=== PATIENT | male | born 1980 | race Caucasian/White ===

== ENCOUNTER 2023-01-31 10:07 | Outpatient (CLI) | payer OTHER, SELFPAY | END 2023-01-31 10:08 | disposition home or self-care (01) | PROVIDERS: PCP Internal Medicine; Visit Provider Internal Medicine | DX: K26.9 Duodenal ulcer, unspecified as acute or chronic, without hemorrhage or perforation (principal); K58.9 Irritable bowel syndrome, unspecified | CPT/HCPCS: 80053; 86140 ==

== ENCOUNTER 2023-02-09 07:50 | Outpatient (CLI) | payer OTHER, SELFPAY ==
--- NOTE | 2023-02-09 08:00 | CRLHL7_ITS ---
For Patients: As a result of the Century Cures Act, medical imaging exams and procedure reports are released immediately into your electronic medical record. You may view this report before your referring provider. If you have questions, please contact your health care provider. INDICATION: Left upper quadrant pain for years. Worse recently. COMPARISON: March 01, 2017 TECHNIQUE: CT examination of the abdomen and pelvis was performed following the uneventful intravenous administration of 108 cc of Isovue 370. Thin section axial images were obtained from the lung bases through the pubic symphysis. Oral contrast was not administered. Please note that all CT scans at this facility use dose modulation, iterative reconstruction, and/or weight-based dosing when appropriate to reduce radiation dose to as low as reasonably achievable. FINDINGS: LUNG BASES: The lung bases as visualized appear normal.The heart size is normal at the lung bases. Small hiatal hernia LIVER/BILIARY SYSTEM:Hepatic steatosis. No focal mass or biliary ductal dilation. Gallbladder appears normal. ADRENALS: Normal KIDNEYS, URETERS and BLADDER:The kidneys appear normal. No visible mass, calculus or hydronephrosis. The ureters and bladder as visualized appear normal. SPLEEN:Normal appearance. PANCREAS: Appears normal. RETROPERITONEUM and MESENTERY: There is no mass, adenopathy or aortic aneurysm. Atherosclerotic vascular calcification GASTROINTESTINAL SYSTEM: There is no evidence of diverticulitis, colitis, mechanical obstruction, or appendicitis. The small bowel as visualized appears normal.Scattered diverticulosis parent PELVIS: Mildly prominent prostate. OSSEOUS STRUCTURES and ABDOMINAL WALL: There is an age-appropriate appearance of the osseous structures.No significant abdominal wall defect. OTHER: No free fluid or free air. IMPRESSION: No specific visible cause for pain. Nonacute appearing findings as above Please note that all CT scans at this facility use dose modulation, iterative reconstruction, and/or weight-based dosing when appropriate to reduce radiation dose to as low as reasonably achievable. Dictated by Emile Jack MD @ 02/09/2023 9:04:34 AM (Electronically Signed)
== END 2023-02-09 07:51 | disposition home or self-care (01) ==
LOC: CT 07:50
PROVIDERS: PCP Internal Medicine; Visit Provider Internal Medicine
DX: R10.12 Left upper quadrant pain (principal); R19.5 Other fecal abnormalities
CPT/HCPCS: 74177; Q9967

== ENCOUNTER 2024-06-25 09:18 | Outpatient (CLI) | payer OTHER, SELFPAY | END 2024-06-25 09:19 | disposition home or self-care (01) | PROVIDERS: PCP Internal Medicine; Visit Provider Internal Medicine | DX: I10 Essential (primary) hypertension (principal); Z13.220 Encounter for screening for lipoid disorders | CPT/HCPCS: 80053; 80061 ==

== ENCOUNTER 2024-07-24 07:41 | Outpatient (CLI) | payer OTHER, SELFPAY ==
--- NOTE | 2024-07-24 09:36 | P.ANES_ITS ---
Anesthesia Charges Start Date/Time Anesthesia Start Date: 07/24/24 Anesthesia Start Time: 08:50 Stop Date/Time Anesthesia Stop Date: 07/24/24 Anesthesia Stop Time: 09:28 Coding CPT Codes CPT Codes: ZURDO LWR INTST NDSC NOS - 13589 ([id number]) QK - ORACLE DBA 2-4 CNCRNT ZURDO PROC, QX - ASSISTANT PROFESSOR OF DIETETICS SVC W/ MD MED DIRECTION, P2 - PATIENT W/MILD SYST DISEASE
--- NOTE | 2024-07-24 09:36 | W.ANESCHARGE ---
Anesthesia Charges Start Date/Time Anesthesia Start Date: 07/24/24 Anesthesia Start Time: 08:50 Stop Date/Time Anesthesia Stop Date: 07/24/24 Anesthesia Stop Time: 09:28 Coding CPT Codes CPT Codes: ZURDO LWR INTST NDSC NOS - 92420 ([id number]) QK - CAREER DEVELOPMENT SPECIALIST 2-4 CNCRNT ZURDO PROC, QX - WAITER WAITRESS SVC W/ MD MED DIRECTION, P2 - PATIENT W/MILD SYST DISEASE
--- NOTE | 2024-07-24 10:09 | P.ANES_ITS ---
Anesthesia Charges Start Date/Time Anesthesia Start Date: 07/24/24 Anesthesia Start Time: 08:50 Stop Date/Time Anesthesia Stop Date: 07/24/24 Anesthesia Stop Time: 09:28 Coding CPT Codes CPT Codes: ZURDO LWR INTST NDSC NOS - [id number] ([id number]) QK - SAMPLE SHOE INSPECTOR AND REWORKER 2-4 CNCRNT ZURDO PROC, QX - RECRUITER ACCOUNT MANAGER SVC W/ MD MED DIRECTION, P2 - PATIENT W/MILD SYST DISEASE
--- NOTE | 2024-07-24 10:09 | W.ANESCHARGE ---
Anesthesia Charges Start Date/Time Anesthesia Start Date: 07/24/24 Anesthesia Start Time: 08:50 Stop Date/Time Anesthesia Stop Date: 07/24/24 Anesthesia Stop Time: 09:28 Coding CPT Codes CPT Codes: ZURDO LWR INTST NDSC NOS - 83170 ([id number]) QK - PACKERHEAD MACHINE OPERATOR 2-4 CNCRNT ZURDO PROC, QX - RETORT FURNACE OPERATOR SVC W/ MD MED DIRECTION, P2 - PATIENT W/MILD SYST DISEASE
== END 2024-07-24 07:42 | disposition home or self-care (01) ==
LOC: OP CLINIC 07:42
PROVIDERS: PCP Internal Medicine; Visit Provider Surgery
DX: Z12.11 Encounter for screening for malignant neoplasm of colon (principal); D12.3 Benign neoplasm of transverse colon; K57.30 Diverticulosis of large intestine without perforation or abscess without bleeding; Z86.0100 Personal history of colon polyps, unspecified
CPT/HCPCS: 00811; 45385; 88305; J2704